=== PATIENT | female | born 1985 | race African-American/Black ===

== ENCOUNTER 2017-03-24 12:54 | Emergency (ER) | payer OTHER ==
[~2017-03-24] VITALS: Ht 149.9 cm; Wt 38.6 kg
[~2017-03-24 12:54] MED LIST: AMOX1TAB61 PO
[2017-03-24] MEDS ORDERED: IV NORMAL SALINE 1000ML BAG 1,000 ML IV SCH (13:08)
[2017-03-24] MEDS ORDERED: 0.9 % SODIUM CHLORIDE 10 ML DISP.SYRIN. IV PRN (13:15)
[2017-03-24] MEDS ORDERED: ONDANSETRON PF 4 MG/2 ML VIAL. IV ONE (13:15)
[2017-03-24] MEDS ORDERED: KETOROLAC TROMETHAMINE 30 MG/ML INJ. IV ONE (13:15)
[2017-03-24 13:21] LABS: BILIRUBIN,URINE NEGATIVE (NEG); GLUCOSE,URINE NEGATIVE (NEG); NITRITE,URINE NEGATIVE (NEG); PROTEIN,URINE NEGATIVE (NEG-TRACE); UROBILINOGEN,URINE 0.2 mg/dL (0.2 mg/dL)
--- NOTE | 2017-03-24 13:23 | PHYS DOC ---
Past Medical History Past Medical History: Anemia, Anxiety, Other Additional Past Medical Histor: herpes,BV Past Surgical History: No Surgical History Alcohol Use: None Drug Use: None Adult General Chief Complaint Chief Complaint: NAUSEA/VOMITING/DIARRHA HPI HPI A shows a pleasant 32-year-old female with history anxiety and night terrors presents with abdominal discomfort that began early this morning with nausea and vomiting 5 episodes. She's been in regular state of health that she woke this morning with crampy lower abdominal pain which is likely associated with her menstrual period. She began having nonbloody is nonbilious emesis 5. She also developed a little bit of a tension a frontal headache described as dull and throbbing. It is not worse of life and sudden onset without radiation to the neck. There is no numbness and tingling associate with this headache and no change in vision. She denies any photophobia or worsening with with exercise or exertion. Patient also been she's had no diarrhea no loose stools no UTI symptoms other than the crampy lower abdominal pain secondary to her LMP patient is otherwise no other complaints. She does somewhat dizzy at times standing from a sitting position. She is supposed to work at 3:30 this afternoon like to call in sick. Review of Systems Review of Systems Constitutional: Denies fever or chills [] Eyes: Denies change in visual acuity, redness, or eye pain [] HENT: Denies nasal congestion or sore throat [] Respiratory: Denies cough or shortness of breath [] Cardiovascular: No additional information not addressed in HPI [] GI: Patient does complain of lower crampy abdominal pain with nausea and vomiting 5 episodes nonbilious nonbloody. Patient has had no diarrhea, no constipation no mucus or blood in her stool. : Denies dysuria or hematuria [] Musculoskeletal: Denies back pain or joint pain [] Integument: Denies rash or skin lesions [] Neurologic: Denies no focal weakness or sensory changes patient does plan a mild frontal headache as described in the history of present illness as well as generalized dizziness described as a rotational motion with standing from a sitting position. Patient denies any problems speaking, changes in vision, tinnitus or weakness. Endocrine: Denies polyuria or polydipsia [] Current Medications Current Medications Current Medications Medications (Trade) Dose Ordered Sig/Lev Start Time Stop Time Status Last Admin Dose Admin Ketorolac Tromethamine (Toradol) 30 mg 1X ONCE 03/24/17 13:15 03/24/17 13:21 DC 03/24/17 13:30 30 MG Ondansetron HCl (Zofran) 4 mg 1X ONCE 03/24/17 13:15 03/24/17 13:21 DC 03/24/17 13:30 4 MG Sodium Chloride (Normal Saline Flush) 10 ml QSHIFT PRN 03/24/17 13:15 Allergies Allergies Allergies Coded Allergies Type Severity Reaction Last Updated Verified No Known Drug Allergies 11/06/14 No Physical Exam Physical Exam Is patient's vital signs been reviewed and they're all normal. Blood pressure is not measured or recorded yet by the this evaluation. Constitutional: Well developed, well nourished, no acute distress, non-toxic appearance. [] HENT: Normocephalic, atraumatic, bilateral external ears normal, oropharynx moist, no oral exudates, nose normal. [] Cardiovascular:Heart rate regular rhythm, no murmur [] Lungs & Thorax: Bilateral breath sounds clear to auscultation [] Abdomen: Increased bowel sounds with no active focal tenderness to palpation no Malin's nor McBurney's point tenderness palpation no guarding rebound or organomegaly no pulsatile mass. Skin: Warm, dry, no erythema, no rash. [] Back: No tenderness, no CVA tenderness. [] Extremities: No tenderness, no cyanosis, no clubbing, ROM intact, no edema. [] Neurologic: Alert and oriented X 3, normal motor function, normal sensory function, no focal deficits noted. [] Psychologic: She is low but anxious but normal judgment Current Patient Data Vital Signs Vital Signs Date Time Temp Pulse Resp B/P (MAP) Pulse Ox O2 Delivery O2 Flow Rate FiO2 03/24/17 13:00 98.2 86 18 124/68 (86) 98 Room Air 98.2 Lab Values Laboratory Tests Test 03/24/17 12:17 03/24/17 13:05 03/24/17 13:20 POC Urine HCG, Qualitative Hcg negative (Negative) Urine Collection Type Unknown Urine Color Yellow Urine Clarity Clear Urine pH 7.0 Urine Specific [place] 1.010 Urine Protein Negative mg/dL (NEG-TRACE) Urine Glucose (UA) Negative mg/dL (NEG) Urine Ketones (Stick) Negative mg/dL (NEG) Urine Blood Small (NEG) Urine Nitrite Negative (NEG) Urine Bilirubin Negative (NEG) Urine Urobilinogen Dipstick 0.2 mg/dL (0.2 mg/dL) Urine Leukocyte Esterase Trace (NEG) Urine RBC Occ /HPF (0-2) Urine WBC Occ /HPF (0-4) Urine Squamous Epithelial Cells Mod /LPF Urine Bacteria Few /HPF (0-FEW) Urine Mucus Mod /LPF White Blood Count 4.7 x10^3/uL (4.0-11.0) Red Blood Count 3.38 x10^6/uL (3.50-5.40) L Hemoglobin 11.1 g/dL (12.0-15.5) L Hematocrit 31.8 % (36.0-47.0) L Mean Corpuscular Volume 94 fL (79-100) Mean Corpuscular Hemoglobin 33 pg (25-35) Mean Corpuscular Hemoglobin Concent 35 g/dL (31-37) Red Cell Distribution Width 13.4 % (11.5-14.5) Platelet Count 417 x10^3/uL (140-400) H Neutrophils (%) (Auto) 59 % (31-73) Lymphocytes (%) (Auto) 33 % (24-48) Monocytes (%) (Auto) 6 % (0-9) Eosinophils (%) (Auto) 1 % (0-3) Basophils (%) (Auto) 1 % (0-3) Neutrophils # (Auto) 2.8 x10^3uL (1.8-7.7) Lymphocytes # (Auto) 1.5 x10^3/uL (1.0-4.8) Monocytes # (Auto) 0.3 x10^3/uL (0.0-1.1) Eosinophils # (Auto) 0.1 x10^3/uL (0.0-0.7) Basophils # (Auto) 0.0 x10^3/uL (0.0-0.2) Sodium Level 139 mmol/L (136-145) Potassium Level 3.7 mmol/L (3.5-5.1) Chloride Level 103 mmol/L (98-107) Carbon Dioxide Level 27 mmol/L (21-32) Anion Gap 9 (6-14) Blood Urea Nitrogen 9 mg/dL (7-20) Creatinine 0.7 mg/dL (0.6-1.0) Estimated GFR (Cockcroft-Gault) 118.1 BUN/Creatinine Ratio 13 (6-20) Glucose Level 97 mg/dL (70-99) Calcium Level 9.0 mg/dL (8.5-10.1) Total Bilirubin 0.3 mg/dL (0.2-1.0) Aspartate Amino Transferase (AST) 18 U/L (15-37) Alanine Aminotransferase (ALT) 13 U/L (14-59) L Alkaline Phosphatase 57 U/L (46-116) Total Protein 7.1 g/dL (6.4-8.2) Albumin 3.2 g/dL (3.4-5.0) L Albumin/Globulin Ratio 0.8 (1.0-1.7) L Lipase 171 U/L (73-393) Laboratory Tests 03/24/17 13:20 Laboratory Tests 03/24/17 13:20 EKG EKG EKG timed 1313 p.m. 03/24/2017 there is trace normal sinus rhythm 80 with a normal TX interval 124 number QRS at 70 normal QTC of 437 normal rhythm with no ST segment or T-wave changes consistent with acute cardiac ischemia. EKG read by Dr. Muir [] Radiology/Procedures Radiology/Procedures [] Course & Med Decision Making Course & Med Decision Making Pertinent Labs and Imaging studies reviewed. (See chart for details) I have reviewed patient nursing notes, vital signs and is treated physical findings my concern initially is to rule out ectopic and UTI. She will also fluids antiemetics given as we are awaiting her response to therapy. Her abdomen is soft with no specific or focal tenderness to palpation in the Malin' s or McBurney's point area. She has no guarding rebound or organomegaly. Patient tells me that their symptoms given during CC are improved. Patient is resting quietly in the bed as to go results. Unfortunately although she's not having any UTI symptoms her urine is contaminated with too many epithelial cells we will not treat this as a UTI. She states that she is not symptomatically. I will provide her antiemetics and something for her crampy abdominal pain is nonnarcotic in nature. I would encourage her to continue her hydration given the day off work and have her follow-up with her primary care doctor. Impression: Nausea and vomiting, near syncope Disposition: PCP follow-up in the next 24-48 hours asked to return for any increasing pain localized in the right lower quadrant return for any fevers greater 102.2 or she does develop any UTI symptoms or, Bleeding in her stool or vomit. Dragon Disclaimer Dragon Disclaimer This electronic medical record was generated, in whole or in part, using a voice recognition dictation system. Departure Departure Impression: Primary Impression: Nausea and vomiting Disposition: 01 HOME, SELF-CARE Condition: IMPROVED Referrals: UNKNOWN PCP NAME (PCP) Patient Instructions: Nausea and Vomiting Additional Instructions: Please return for any new or increasing symptoms or feel any question concerns. I would also suggest he return for any blood in her vomit or blood in her stool or if you have any questions or concerns. I would also asked to return for any localized abdominal pain the right lower quadrant with fever greater than 102.2 or any recurrent UTI symptoms. Please attempt to stay hydrated by drinking at least 8-10 glasses of clear fluid a day. Scripts Ondansetron (ZOFRAN ODT) 4 Mg Tab.rapdis 4 MG PO BID Y for NAUSEA/VOMITING for 7 Days, #14 TAB Prov: TONJA MUIR MD 03/24/17 Dicyclomine Hcl (BENTYL) 10 Mg Capsule 1 CAP PO TID, #30 CAP 3 Refills Prov: TONJA MUIR MD 03/24/17 TONJA MUIR MD Mar 24, 2017 13:23
[2017-03-24 13:37] LABS: BACTERIA,URINE FEW /HPF (0-FEW); RBC,URINE OCC /HPF (0-2); SQUAMOUS EPITHELIAL CELL,UR MOD /LPF; WBC,URINE OCC /HPF (0-4)
[2017-03-24 13:44] LABS: BASO % 1 % (0-3); EOS % 1 % (0-3); HEMATOCRIT 31.8 % (36.0-47.0); HEMOGLOBIN 11.1 g/dL (12.0-15.5); LYMPH # 1.5 x10^3/uL (1.0-4.8); LYMPH % 33 % (24-48); MEAN CORPUSCULAR HEMOGLOBIN 33 pg (25-35); MEAN CORPUSCULAR HGB CONC 35 g/dL (31-37); MEAN CORPUSCULAR VOLUME 94 fL (79-100); MONO % 6 % (0-9); NEUT % 59 % (31-73); PLATELET COUNT 417 x10^3/uL (140-400); RED BLOOD COUNT 3.38 x10^6/uL (3.50-5.40); RED CELL DISTRIBUTION WIDTH 13.4 % (11.5-14.5); WHITE BLOOD COUNT 4.7 x10^3/uL (4.0-11.0)
[2017-03-24 13:57] LABS: CREATININE 0.7 mg/dL (0.6-1.0); GFR 118.1; POTASSIUM 3.7 mmol/L (3.5-5.1)
[2017-03-24 14:03] LABS: ALBUMIN 3.2 g/dL (3.4-5.0); ALBUMIN/GLOBULIN RATIO 0.8 (1.0-1.7); TOTAL BILIRUBIN 0.3 mg/dL (0.2-1.0); TOTAL PROTEIN 7.1 g/dL (6.4-8.2)
[2017-03-24] MEDS ORDERED: DICY10CA53 PO (14:21)
[2017-03-24] MEDS ORDERED: ONDA4TAB10 PO (14:21)
[2017-03-24 14:29] VITALS: BP 103/71
--- NOTE | 2017-03-24 18:16 | EKG ---
[facility] [address] [place] [address] Test Date: 2017-03-24 Test Time: 13:13:46 Pat Name: SHELLY LOWRY Department: Room: Gender: F Podopediatrician: : 1985 Requested By: TONJA MUIR Order Number: [id number] Reading MD: Measurements Intervals [place] Rate: 80 P: 32 [place]: 124 QRS: 31 QRSD: 70 T: -3 QT: 376 QTc: 437 Interpretive Statements SINUS RHYTHM NON SPECIFIC T ABNORMALITY RI6.01 Unconfirmed report No previous ECG available for comparison
== END 2017-03-24 14:28 | disposition home or self-care (01) ==
LOC: ER 12:54
DX: R11.2 Nausea with vomiting, unspecified (principal); R10.30 Lower abdominal pain, unspecified; R51 Headache; R55 Syncope and collapse; F41.9 Anxiety disorder, unspecified
CPT/HCPCS: 36415; 80053; 81001; 81025; 83690; 85027; 93005; 96361; 96374; 96375; 99285; J1885; J2405; J7030

== ENCOUNTER 2017-09-15 03:45 | Emergency (ER) | payer OTHER ==
[2017-09-15 04:04] LABS: URINE HCG POC HCG NEGATIVE (Negative)
[2017-09-15 04:05] LABS: BILIRUBIN,URINE NEGATIVE (NEG); CLARITY,URINE CLEAR; COLOR,URINE YELLOW; GLUCOSE,URINE NEGATIVE (NEG); NITRITE,URINE NEGATIVE (NEG); PH,URINE 7.5; PROTEIN,URINE NEGATIVE (NEG-TRACE); UROBILINOGEN,URINE 0.2 mg/dL (0.2 mg/dL)
[2017-09-15] MEDS: ONDANSETRON ODT 4 MG TAB.RAPDIS. PO (04:10)
[2017-09-15 04:44] LABS: BACTERIA,URINE 0 /HPF (0-FEW); RBC,URINE OCC /HPF (0-2); SQUAMOUS EPITHELIAL CELL,UR FEW /LPF; WBC,URINE OCC /HPF (0-4)
== END 2017-09-15 05:05 | disposition home or self-care (01) ==
LOC: ER 03:45
DX: B34.9 Viral infection, unspecified (principal); R51 Headache; R11.2 Nausea with vomiting, unspecified
CPT/HCPCS: 70450; 81001; 81025; 99285-25; Q0162

== ENCOUNTER 2018-04-01 10:47 | Emergency (ER) | payer OTHER ==
[2018-04-01 11:09] LABS: URINE HCG POC HCG NEGATIVE (Negative)
[2018-04-01 11:57] LABS: ADD MAN DIFF? NO
[2018-04-01 12:01] LABS: BASO % 1 % (0-3); EOS % 1 % (0-3); HEMATOCRIT 31.7 % (36.0-47.0); HEMOGLOBIN 11.2 g/dL (12.0-15.5); LYMPH # 1.4 x10^3/uL (1.0-4.8); LYMPH % 31 % (24-48); MEAN CORPUSCULAR HEMOGLOBIN 32 pg (25-35); MEAN CORPUSCULAR HGB CONC 35 g/dL (31-37); MEAN CORPUSCULAR VOLUME 91 fL (79-100); MONO # 0.3 x10^3/uL (0.0-1.1); MONO % 6 % (0-9); NEUT # 2.9 x10^3uL (1.8-7.7); NEUT % 62 % (31-73); PLATELET COUNT 494 x10^3/uL (140-400); RED BLOOD COUNT 3.49 x10^6/uL (3.50-5.40); RED CELL DISTRIBUTION WIDTH 13.2 % (11.5-14.5); WHITE BLOOD COUNT 4.7 x10^3/uL (4.0-11.0)
[2018-04-01 12:03] LABS: BILIRUBIN,URINE NEGATIVE (NEG); CLARITY,URINE CLEAR; COLOR,URINE YELLOW; GLUCOSE,URINE NEGATIVE (NEG); NITRITE,URINE NEGATIVE (NEG); PROTEIN,URINE NEGATIVE (NEG-TRACE); UROBILINOGEN,URINE 0.2 mg/dL (0.2 mg/dL)
[2018-04-01 12:11] LABS: ANION GAP 10 (6-14); BLOOD UREA NITROGEN 6 mg/dL (7-20); BUN/CREATININE RATIO 8 (6-20); CALCIUM 8.9 mg/dL (8.5-10.1); CARBON DIOXIDE 25 mmol/L (21-32); CHLORIDE 103 mmol/L (98-107); CREATININE 0.8 mg/dL (0.6-1.0); GFR 100.6; GLUCOSE 96 mg/dL (70-99); POTASSIUM 3.3 mmol/L (3.5-5.1); SODIUM 138 mmol/L (136-145)
[2018-04-01] MEDS ORDERED: CONTRAST GIVEN. MC (12:15)
[2018-04-01 12:16] LABS: ALBUMIN 3.2 g/dL (3.4-5.0); ALBUMIN/GLOBULIN RATIO 0.8 (1.0-1.7); ALK PHOS 72 U/L (46-116); ALT (SGPT) 16 U/L (14-59); AST (SGOT) 19 U/L (15-37); LIPASE 137 U/L (73-393); MAGNESIUM 1.9 mg/dL (1.8-2.4); TOTAL BILIRUBIN 0.2 mg/dL (0.2-1.0); TOTAL PROTEIN 7.1 g/dL (6.4-8.2)
[2018-04-01 12:17] LABS: BACTERIA,URINE MODERATE /HPF (0-FEW); SQUAMOUS EPITHELIAL CELL,UR FEW /LPF; WBC,URINE 20-40 /HPF (0-4)
[2018-04-01] MEDS: KETOROLAC 30 MG/ML INJ. IV (12:19)
[2018-04-01] MEDS: FAMOTIDINE 20 MG/2 ML VIAL IVP (12:20)
[2018-04-01] MEDS: DICYCLOMINE 20 MG/2 ML AMPUL. IM (12:20)
[2018-04-01] MEDS: ONDANSETRON PF 4 MG/2 ML VIAL. IV (12:20)
[2018-04-01] MEDS: IOHEXOL 300 MG/ML 100ML VIAL. IV (13:16)
[2018-04-01] MEDS: IOHEXOL 240 MG/ML 50ML VIAL. PO (13:16)
[2018-04-01] MEDS: CEPHALEXIN 250 MG CAPSULE. PO (13:47)
== END 2018-04-01 13:55 | disposition home or self-care (01) ==
LOC: ER 10:47
DX: N30.00 Acute cystitis without hematuria (principal)
CPT/HCPCS: 36415; 74177; 80053; 81001; 81025; 83690; 83735; 85025; 87086; 96372; 96374; 96375; 99285-25; J0500; J1885; J2405; Q9966; Q9967; S0028

== ENCOUNTER → 2018-10-27 | Outpatient (CLI) | payer OTHER ==
[2018-04-01 12:24] VITALS: BP 112/79
[~2018-10-27] MED LIST changes: +CEPH-264 PO; +DICY10CA53 PO; +HYOS0.1265 SL; +ONDA4TAB10 PO; +ONDA4TAB7 PO
--- NOTE | 2018-10-27 17:01 | RAD ---
Right foot and ankle radiograph 10/27/2018 12:00 AM Left foot and ankle radiograph INDICATION: Feet and bilateral ankle pain, one week after injury COMPARISON: None available. TECHNIQUE: 3 views of the right foot, 3 views of the left foot, 3 views the right ankle and 3 views the left ankle are provided. FINDINGS: Right foot and ankle: There is no acute fracture or dislocation. 3mm osseous protuberance along the lateral aspect of the distal fibular metadiaphysis may reflect sequela prior trauma versus a small osteochondroma. Tibial plafond and talar dome are intact. Ankle mortise is congruent. Bone mineralization is within normal limits. Joint spaces are maintained. Regional soft tissues are within normal limits. There is no soft tissue gas or osseous erosion. There is pes planus. Left foot and ankle: There is no acute fracture or dislocation. Tibial plafond and talar dome are intact. Ankle mortise is congruent.. Bone mineralization is within normal limits. Joint spaces are maintained. Regional soft tissues are within normal limits. There is no soft tissue gas or osseous erosion. There is pes planus. IMPRESSION: No acute fracture or dislocation involving both feet and ankles. 3mm osseous protuberance along the lateral aspect of the distal fibular metadiaphysis may reflect sequela prior trauma versus a small osteochondroma. Electronically signed by: Maria Del Rosario Mendez MD (10/27/2018 4:58 PM) [id number]
--- NOTE | 2018-10-27 17:03 | RAD ---
Lumbar spine radiograph October 27, 2018 INDICATION: Lower back pain for one week after injury. History of sciatica. COMPARISON: None available TECHNIQUE: 5 views of the lumbosacral spine are provided. FINDINGS: Partial sacralization of the fifth lumbar segment is noted on the right. Alignment of the lumbar spine is normal. Vertebral body heights are maintained. No acute fracture is identified. There is no significant spondylolisthesis. No spondylolysis. Mild facet arthropathy is identified at the lumbosacral junction. Disc heights are maintained. There is a nonobstructive bowel gas pattern. Phleboliths are identified within the pelvis. Sacroiliac joints appear well maintained. IMPRESSION: 1. There is partial sacralization of the right L5 vertebral body. 2. No acute fracture or malalignment. Electronically signed by: Maria Del Rosario Mendez MD (10/27/2018 5:00 PM) [id number]
== END | disposition home or self-care (01) ==
LOC: RAD 14:29
PROVIDERS: ATTEND Physician Assistant Medical
DX: M21.42 Flat foot [pes planus] (acquired), left foot (principal); M21.41 Flat foot [pes planus] (acquired), right foot; M12.88 Other specific arthropathies, not elsewhere classified, other specified site
CPT/HCPCS: 72110; 73610; 73630

== ENCOUNTER 2020-05-07 09:57 | Emergency (ER) | payer MEDICAID, OTHER ==
[~2020-05-07] VITALS: Ht 149.9 cm; Wt 59.1 kg
[2020-05-07 11:10] LABS: CALCIUM 9.5 mg/dL (8.5-10.1); CREATININE 0.8 mg/dL (0.6-1.0); GFR 99.4; POTASSIUM 3.8 mmol/L (3.5-5.1)
[2020-05-07 11:15] LABS: BASO % 0 % (0-3); EOS % 0 % (0-3); HEMOGLOBIN 10.6 g/dL (12.0-15.5); LYMPH # 1.6 x10^3/uL (1.0-4.8); LYMPH % 18 % (24-48); MEAN CORPUSCULAR HEMOGLOBIN 28 pg (25-35); MEAN CORPUSCULAR HGB CONC 33 g/dL (31-37); MEAN CORPUSCULAR VOLUME 84 fL (79-100); MONO # 0.5 x10^3/uL (0.0-1.1); MONO % 6 % (0-9); NEUT # 6.8 x10^3/uL (1.8-7.7); NEUT % 75 % (31-73); RED BLOOD COUNT 3.81 x10^6/uL (3.50-5.40); RED CELL DISTRIBUTION WIDTH 15.3 % (11.5-14.5)
[2020-05-07 11:16] LABS: ALBUMIN 3.5 g/dL (3.4-5.0); ALBUMIN/GLOBULIN RATIO 0.7 (1.0-1.7); TOTAL BILIRUBIN 0.2 mg/dL (0.2-1.0); TOTAL PROTEIN 8.8 g/dL (6.4-8.2)
--- NOTE | 2020-05-07 11:25 | RAD ---
Examination: Supine and upright AP views of the abdomen HISTORY: History of left upper quadrant pain COMPARISON: None available FINDINGS: The bibasilar lungs are clear. No evidence of free air identified under the hemidiaphragm. The bowel gas pattern appears unremarkable. Feces and gas noted in the colon. IMPRESSION: Unremarkable bowel gas pattern. Electronically signed by: Sanchez Villar MD (05/07/2020 11:22 AM) [id number]
[2020-05-07 11:36] LABS: PLATELET COUNT 802 x10^3/uL (140-400)
--- NOTE | 2020-05-07 11:37 | PHYS DOC ---
Past Medical History Past Medical History: Anemia, Anxiety, Depression, Other Additional Past Medical Histor: herpes,BV; chronic sinus complaints Past Surgical History: Other Additional Past Surgical Histo: DENTAL SURGERY Smoking Status: Never Smoker Alcohol Use: Rarely Drug Use: None General Adult EDM: Chief Complaint: ABDOMINAL PAIN HPI: HPI: 35-year-old female past medical history significant for anemia, anxiety and depression, presents the ED with complaints of "stomach pain," located in epigastric and left upper quadrant, described as cramping in nature, intermittent that has been present for the past " 2 lawrence." Reports sxs exacerbarted after eating a spicy hot dog. States she has had irregular bowel movements and her primary doctor started seamus MiraLAX-but this makes her have diarrhea, last bowel movement was yesterday morning. Normal brown color. States she is also being prescribed PEG, sulcrafate and Pepcid. Has pending GI follow-up that her primary physician is scheduling. No PSH. LMP was 1 week ago. Is asking for medication for her stomach but does not want anything that causes cancer (zantac). Denies any daily alcohol/thc use. ROS: Denies associated fever, chills, cough, dyspnea, sore throat, chest pain, dyspnea, n/v/d/c, flank pain, dysuria, hematuria, melena, hematochezia, hematemesis, hemoptysis, leg swelling, rash, vaginal bleeding. Allergies: Allergies: Allergies Coded Allergies Type Severity Reaction Last Updated Verified No Known Drug Allergies 11/06/14 No Physical Exam: PE: Constitutional: Well developed, well nourished, no acute distress, non-toxic appearance. [] HENT: Normocephalic, atraumatic, Eyes: EOMI, conjunctiva normal, no discharge. [] Neck: Normal range of motion, no tenderness, supple, no stridor. [] Cardiovascular:Heart rate regular rhythm, no murmur [] Lungs & Thorax: Bilateral breath sounds clear to auscultation [] Abdomen: Bowel sounds normal, soft, no tenderness, no masses, no pulsatile masses. []-very benign abdominal exam Skin: Warm, dry, no erythema, no rash. [] Back: No tenderness, no CVA tenderness. [] Extremities: No tenderness, no cyanosis, no clubbing, ROM intact, no edema. [] Neurologic: Alert and oriented X 3, normal motor function, normal sensory function, no focal deficits noted. [] Psychologic: Affect normal, judgement normal, mood normal. [], slightly anxious Current Patient Data: Labs: Laboratory Tests Test 05/07/20 10:21 05/07/20 10:35 POC Urine HCG, Qualitative Hcg negative (Negative) White Blood Count 9.0 x10^3/uL (4.0-11.0) Red Blood Count 3.81 x10^6/uL (3.50-5.40) Hemoglobin 10.6 g/dL (12.0-15.5) L Hematocrit 32.0 % (36.0-47.0) L Mean Corpuscular Volume 84 fL (79-100) Mean Corpuscular Hemoglobin 28 pg (25-35) Mean Corpuscular Hemoglobin Concent 33 g/dL (31-37) Red Cell Distribution Width 15.3 % (11.5-14.5) H Platelet Count 802 x10^3/uL (140-400) H Neutrophils (%) (Auto) 75 % (31-73) H Lymphocytes (%) (Auto) 18 % (24-48) L Monocytes (%) (Auto) 6 % (0-9) Eosinophils (%) (Auto) 0 % (0-3) Basophils (%) (Auto) 0 % (0-3) Neutrophils # (Auto) 6.8 x10^3/uL (1.8-7.7) Lymphocytes # (Auto) 1.6 x10^3/uL (1.0-4.8) Monocytes # (Auto) 0.5 x10^3/uL (0.0-1.1) Eosinophils # (Auto) 0.0 x10^3/uL (0.0-0.7) Basophils # (Auto) 0.0 x10^3/uL (0.0-0.2) Sodium Level 135 mmol/L (136-145) L Potassium Level 3.8 mmol/L (3.5-5.1) Chloride Level 100 mmol/L (98-107) Carbon Dioxide Level 28 mmol/L (21-32) Anion Gap 7 (6-14) Blood Urea Nitrogen 9 mg/dL (7-20) Creatinine 0.8 mg/dL (0.6-1.0) Estimated GFR (Cockcroft-Gault) 99.4 BUN/Creatinine Ratio 11 (6-20) Glucose Level 97 mg/dL (70-99) Calcium Level 9.5 mg/dL (8.5-10.1) Magnesium Level 2.0 mg/dL (1.8-2.4) Total Bilirubin 0.2 mg/dL (0.2-1.0) Aspartate Amino Transferase (AST) 16 U/L (15-37) Alanine Aminotransferase (ALT) 18 U/L (14-59) Alkaline Phosphatase 110 U/L (46-116) Total Protein 8.8 g/dL (6.4-8.2) H Albumin 3.5 g/dL (3.4-5.0) Albumin/Globulin Ratio 0.7 (1.0-1.7) L Laboratory Tests 05/07/20 10:35 Laboratory Tests 05/07/20 10:35 Vital Signs: Vital Signs Date Time Temp Pulse Resp B/P (MAP) Pulse Ox O2 Delivery O2 Flow Rate FiO2 05/07/20 10:07 98.9 90 18 108/65 (79) 98 Room Air 98.9 EKG: EKG: [] Radiology/Procedures: Radiology/Procedures: []IMAGING REPORT Signed PATIENT: SHELLY LOWRY ACCOUNT: [id number] : 1985 LOCATION: ER AGE: 35 SEX: F EXAM STATUS: REG ER ORD. PHYSICIAN: BRENDAN SANFORD DO REASON: luq pain PROCEDURE: ABDOMEN SUPINE & UPRIGHT Examination: Supine and upright AP views of the abdomen HISTORY: History of left upper quadrant pain COMPARISON: None available FINDINGS: The bibasilar lungs are clear. No evidence of free air identified under the hemidiaphragm. The bowel gas pattern appears unremarkable. Feces and gas noted in the colon. IMPRESSION: Unremarkable bowel gas pattern. Electronically signed by: Sanchez Villar MD (05/07/2020 11:22 AM) [id number] DICTATED and SIGNED BY: SANCHEZ VILLAR MD DATE: 05/07/20 1122 Course & Med Decision Making: Course & Med Decision Making Pertinent Labs and Imaging studies reviewed. (See chart for details) Concern for mild abdominal pain - broad differential in a well appearing, non distress pt. Likely IBS vs constipation vs gerd. We did discuss further ct imagi ng-pt declined and wishes to pursue outpatient management with GI. Strict ED return precautions were given for severe abdominal pain or back pain. Encouraged urgent outpatient follow-up with PMD and GI (needs upper GI). Life- threatening processes were considered but are low suspicion at this time, given history and physical exam. Pt was educated on all prescription medications and adverse effects. All patient's questions were answered and pt was stable at time of discharge. Differential includes aortic dissection, aortic aneurysm, acute coronary syndrome, surgical abdomen (appendicitis, cholecystitis, ischemic bowel, strangulated hernia, etc), bowel obstruction or volvulus, bladder outlet obstruction, gastrointestinal bleeding, inflammatory bowel disease, peptic ulcer disease, sepsis, diverticular disease, ureterolithiasis, nephrolithiasis, ovarian torsion, ectopic I spoken with the patient and her caregivers. I explained the patient's condition, diagnoses and treatment plan based on the information available to me at this time. I have answered the patient and her caregiver's questions and addressed any concerns. The patient and her caregivers have a good unders tanding of patient's diagnosis, condition and treatment plan as can be expected at this point. Vital signs have been stable. Patient's condition is stable and appropriate for discharge from the emergency department. Patient will pursue further outpatient evaluation with primary care physician or other designated or consulting physician as outlined in the discharge instructions. The patient and/or caregivers are agreeable to this plan of care and follow-up instructions have been explained in detail. The patient and/or caregivers have received these instructions in written form and have expressed an understanding of the discharge instructions. The patient and/or caregivers are aware that any significant change of condition or worsening of symptoms should prompt immediate return to this or the closest emergency department or call to 911. Gurvinder Disclaimer: Gurvinder Disclaimer: This electronic medical record was generated, in whole or in part, using a voice recognition dictation system. Departure Departure Impression: Primary Impression: Abdominal pain Additional Impression: Anemia Disposition: 01 HOME, SELF-CARE Condition: STABLE Referrals: GRETEL FELIX PA-C (PCP) Additional Instructions: Tio Pierre MD Gastroenterology [facility] Address: [address] [place] [address] Justicifation of Admission Dx: Justifications for Admission: Justification of Admission Dx: N/A BRENDAN SANFORD DO May 07, 2020 11:37
[2020-05-07] MEDS ORDERED: LIDO:MAALOX 1:1 20 ML SINGLE DOSE. SWSW ONE (13:15)
[2020-05-07 13:23] VITALS: BP 107/56
== END 2020-05-07 14:00 | disposition home or self-care (01) ==
LOC: ER 09:57
DX: R10.13 Epigastric pain (principal); D64.9 Anemia, unspecified; R10.11 Right upper quadrant pain; F41.9 Anxiety disorder, unspecified; F32.9 Major depressive disorder, single episode, unspecified
CPT/HCPCS: 36415; 74021; 80053; 81025; 83690; 83735; 85025; 99285-25

== ENCOUNTER → 2020-06-09 | Outpatient (CLI) | payer MEDICAID ==
[~2020-06-09] VITALS: Ht 149.9 cm; Wt 56.7 kg
[~2020-06-09] MED LIST changes: +SINCALIDE 1.13 MCG in IV NORMAL SALINE 50ML 30 ML IV ONE
--- NOTE | 2020-06-09 08:21 | RAD ---
EXAM: Abdomen sonogram. HISTORY: Epigastric pain. TECHNIQUE: Sonographic imaging of the abdomen was performed. COMPARISON: CT dated 04/01/2018. FINDINGS: The liver is normal in size. No focal hepatic lesion is seen. There is a 3.7 mm nonmobile echogenic focus along the gallbladder wall. The imaging appearance favors a polyp. The common bile duct is normal in caliber. The right kidney measures 7.9 cm [id number]. The inferior aspect of the right kidney is obscured due to bowel gas. The pancreas is unremarkable. The inferior vena cava is patent. IMPRESSION: 1. Suspected 3.7 mm gallbladder polyp. 2. Decreased right renal size. This is likely underestimated due to bowel gas which obscures the inferior aspect of the right kidney. 3. No acute finding. Electronically signed by: Pallavi Figueroa MD (06/09/2020 8:18 AM) [id number]
--- NOTE | 2020-06-09 12:18 | RAD ---
EXAM: HEPATOBILIARY SCINTIGRAPHY WITH GALLBLADDER EJECTION FRACTION CALCULATION. HISTORY: Abdominal pain/nausea. TECHNIQUE: 5.5 mCi technetium-99m Choletec were administered intravenously and scintigraphic images of the abdomen obtained. After filling of the gallbladder, 1.13 mcg of sincalide were infused and the gallbladder ejection fraction calculated. FINDINGS: There is prompt hepatic clearance of tracer from the blood pool. There is homogeneous distribution throughout the liver. There is normal filling of the gallbladder and clearance into the biliary tree and small bowel. The gallbladder ejection fraction is 81% (normal >35%). IMPRESSION: 1. Normal gallbladder ejection fraction. Electronically signed by: Marlene Green MD (06/09/2020 12:15 PM) [id number]
== END | disposition home or self-care (01) ==
LOC: US 06:58
PROVIDERS: ATTEND Internal Medicine Gastroenterology
DX: R11.0 Nausea (principal); R10.13 Epigastric pain
CPT/HCPCS: 76705; 78227; A9537; J2805

== ENCOUNTER → 2020-08-08 | Outpatient (CLI) | payer MEDICAID ==
[~2020-08-08] MED LIST changes: +ASCO500C9 PO; +BISO5TAB8 PO; +CETI10TA16 PO; +FLUT9.9S NS; +OMEP40CA45 PO; +OXYC1TAB15 PO; -SINCALIDE 1.13 MCG in IV NORMAL SALINE 50ML 30 ML IV ONE; +VENL75TA PO
== END ==
LOC: LAB 13:29
PROVIDERS: ATTEND Surgery
DX: Z01.812 Encounter for preprocedural laboratory examination (principal); K82.4 Cholesterolosis of gallbladder; Z20.828 Contact with and (suspected) exposure to other viral communicable diseases
CPT/HCPCS: U0003

== ENCOUNTER 2020-08-11 06:34 | Day surgery (SDC) | payer MEDICAID ==
[~2020-08-11] VITALS: Ht 149.9 cm; Wt 53.5 kg
[~2020-08-11 06:34] MED LIST changes: +ACETAMINOPHEN 500 MG TABLET PO PRN; +BUPIVACAINE-EPI 0.25%-1:200000 MPF 30 ML VIAL. INJ ONE; +INDOCYANINE GREEN 2.5 MG in TOTAL VOLUME SYRINGE 1 ML IVP ONE; -OXYC1TAB15 PO; +ceFAZolin SODIUM IV Push 1 GM VIAL. IVP PRN
[2020-08-11] MEDS ORDERED: MORPHINE SULFATE 2 MG/ML VIAL. IVP PRN (07:00)
[2020-08-11] MEDS ORDERED: PROCHLORPERAZINE 10 MG/2 ML VIAL. IVP PRN (07:00)
[2020-08-11] MEDS ORDERED: fentaNYL PF VIAL 100 MCG/2 ML VIAL IVP PRN ×2 (07:00)
[2020-08-11] MEDS ORDERED: HYDROmorphone 2 MG/ML VIAL IVP PRN (07:00)
[2020-08-11] MEDS ORDERED: LIDOCAINE 1% PF 2 ML VIAL. ID PRN (07:00)
[2020-08-11] MEDS ORDERED: ONDANSETRON PF 4 MG/2 ML VIAL. IVP PRN (07:00)
[2020-08-11] MEDS: IV RINGERS,LACTATED 1000ML 1,000 ML IV SCH ×2 (07:05→09:58)
[2020-08-11] MEDS ORDERED: MIDAZOLAM HCL/PF 2 MG/2 ML VIAL. ONE (07:38)
[2020-08-11] MEDS ORDERED: fentaNYL PF VIAL 100 MCG/2 ML VIAL ONE ×2 (07:38→08:06)
[2020-08-11] MEDS ORDERED: ROCURONIUM 50 MG/5 ML VIAL. ONE (07:39)
--- NOTE | 2020-08-11 07:43 | PDOC1 ---
History and Physical Date of Admission Date of Admission DATE: 08/11/20 TIME: 07:40 Identification/Chief Complaint Chief Complaint Postprandial pain Source Source: Patient History of Present Illness History of Present Illness 35-year-old female who has complaints of pain after eating mostly across her upper abdomen and to the right side. Ultrasound of the gallbladder did not show stones but did show polyps within the gallbladder HIDA scan was normal Past Medical History Cardiovascular: No pertinent hx Pulmonary: No pertinent hx GI: No pertinent hx Heme/Onc: Anemia NOS Hepatobiliary: No pertinent hx Psych: Anxiety, Depression Rheumatologic: No pertinent hx Infectious disease: No pertinent hx ENT: No pertinent hx Renal/: No pertinent hx Endocrine: No pertinent hx Dermatology: No pertinent hx Past Surgical History Past Surgical History: No pertinent history Family History Family History: No Significant Social History Smoke: No ALCOHOL: none Current Medications Current Medications Current Medications Ondansetron HCl (Zofran) 4 mg PRN Q6HRS PRN IVP NAUSEA/VOMITING; Start 08/11/20 at 07:00; Stop 08/12/20 at 06:59 Fentanyl Citrate (Fentanyl 2ml Vial) 25 mcg PRN Q5MIN PRN IVP MILD PAIN 1-3; Start 08/11/20 at 07:00; Stop 08/12/20 at 06:59 Fentanyl Citrate (Fentanyl 2ml Vial) 50 mcg PRN Q5MIN PRN IVP MODERATE TO SEVERE PAIN; Start 08/11/20 at 07:00; Stop 08/12/20 at 06:59 Morphine Sulfate (Morphine Sulfate) 1 mg PRN Q10MIN PRN IVP SEVERE PAIN 7-10; Start 08/11/20 at 07:00; Stop 08/12/20 at 06:59 Ringer's Solution 1,000 ml @ 30 mls/hr Q24H IV Last administered on 08/11/20at 07:05; Start 08/11/20 at 07:00; Stop 08/11/20 at 18:59 Lidocaine HCl (Xylocaine-Mpf 1% 2ml Vial) 2 ml PRN 1X PRN ID IV START; Start 08/11/20 at 07:00; Stop 08/12/20 at 06:59 Hydromorphone HCl (Dilaudid) 0.5 mg PRN Q10MIN PRN IVP SEV PAIN, Second choice; Start 08/11/20 at 07:00; Stop 08/12/20 at 06:59 Prochlorperazine Edisylate (Compazine) 5 mg PACU PRN PRN IVP NAUSEA, MRX1; Start 08/11/20 at 07:00; Stop 08/12/20 at 06:59 Indocyanine Green 2.5 mg/ Miscellaneous 1 ml @ 60 mls/hr 1X ONCE IVP Last administered on 08/11/20at 07:11; Start 08/11/20 at 06:30; Stop 08/11/20 at 06:31; Status DC Bupivacaine HCl/ Epinephrine Bitart (Sensorcaine-Epi 0.25%-[id number]:081813 Mpf) 30 ml 1X ONCE INJ ; Start 08/11/20 at 06:00; Stop 08/11/20 at 06:01; Status DC Acetaminophen (Tylenol) 1,000 mg OC PROC PRN PO PRE-OP Last administered on 08/11/20at 07:07; Start 08/11/20 at 06:00; Stop 08/11/20 at 18:00 Cefazolin Sodium (Ancef) 1 gm 1X PREOP PRN IVP PRIOR TO PROCEDURE; Start 08/11/20 at 06:00; Stop 08/11/20 at 18:00 Midazolam HCl (Versed) 2 mg STK-MED ONCE .ROUTE ; Start 08/11/20 at 07:38; Stop 08/11/20 at 07:38; Status DC Fentanyl Citrate (Fentanyl 2ml Vial) 100 mcg STK-MED ONCE .ROUTE ; Start 08/11/20 at 07:38; Stop 08/11/20 at 07:39; Status DC Rocuronium [place] (Zemuron) 50 mg STK-MED ONCE .ROUTE ; Start 08/11/20 at 07:39; Stop 08/11/20 at 07:39; Status DC Active Scripts Active Zofran (Ondansetron Hcl) 4 Mg Tablet 1 Tab PO Q8HRS PRN Reported Cetirizine Hcl 10 Mg Tablet 10 Mg PO DAILY Omeprazole 40 Mg Capsule.dr 40 Mg PO DAILY Venlafaxine Hcl 75 Mg Tablet 150 Mg PO DAILY16 Flonase Allergy Relief (Fluticasone Propionate) 9.9 Ml Blum.susp 2 Sprays NS PRN DAILY PRN Vitamin C (Ascorbic Acid) 500 Mg Capsule 500 Mg PO DAILY Allergies Allergies: Coded Allergies: pineapple (Verified Allergy, Intermediate, Swelling, 08/11/20) lips swelled famotidine (Verified Adverse Reaction, Intermediate, Nausea and Vomiting, 08/11/20) ROS Gastrointestinal: Yes Abdominal Pain Physical Exam General: Alert, Oriented X3, Cooperative, No acute distress HEENT: Atraumatic, EOMI Lungs: Clear to auscultation, Normal air movement Heart: RRR, no murmurs Abdomen: Normal bowel sounds, Soft, No tenderness Rectal Exam: not examined Extremities: No edema Skin: No significant lesion Neuro: Normal speech Psych/Mental Status: Mental status NL Vitals Vitals Vital Signs Date Time Temp Pulse Resp B/P (MAP) Pulse Ox O2 Delivery O2 Flow Rate FiO2 08/11/20 07:05 97.3 94 126/64 98 97.3 08/11/20 07:02 20 Labs Labs Laboratory Tests Test 08/11/20 06:47 Bedside Urine HCG, Qualitative Hcg negative (Negative) Laboratory Tests Test 08/11/20 06:47 Bedside Urine HCG, Qualitative Hcg negative (Negative) VTE Prophylaxis Ordered VTE Prophylaxis Devices: Yes VTE Pharmacological Prophylaxi: Contraindicated Assessment/Plan Assessment/Plan Gallbladder polyps plan robotic assisted laparoscopic cholecystectomy Justifications for Admission Other Justification LUAN HODGE MD Aug 11, 2020 07:43
[2020-08-11] MEDS ORDERED: DEXAMETHASONE SOD PHOS 20 MG/5 ML VIAL. ONE (08:18)
[2020-08-11] MEDS ORDERED: KETOROLAC 30 MG/ML VIAL. ONE (08:18)
[2020-08-11] MEDS ORDERED: NEOSTIGMINE METHYLSULFATE 5 MG/5 ML SYRINGE. ONE ×2 (08:18→08:58)
[2020-08-11] MEDS ORDERED: PROPOFOL 10 MG/ML (20ML) VIAL. IV ONE (08:18)
[2020-08-11] MEDS ORDERED: ONDANSETRON PF 4 MG/2 ML VIAL. ONE (08:18)
[2020-08-11] MEDS ORDERED: LIDOCAINE 2% PF 5 ML VIAL. ONE (08:18)
[2020-08-11] MEDS ORDERED: GLYCOPYRROLATE 1 MG/5 ML VIAL. ONE (08:18)
[2020-08-11] MEDS ORDERED: SEVOFLURANE 31 TO 60 MINUTES. IH ONE (08:45)
--- NOTE | 2020-08-11 08:48 | PDOC4 ---
Operative Note Operative Note Date: August 11, 2020 at 845 Preoperative diagnosis: Gallbladder polyp Postoperative diagnosis: Same Procedure: Robotic assisted laparoscopic cholecystectomy Surgeon: Srinivasan Specimen: Gallbladder Dictation: Patient is a 35-year-old female has had postprandial nausea and pain ultrasound and HIDA scan did not show gallstones or biliary dyskinesia but did show gallbladder polyps. The procedure of robotic assisted laparoscopic cholecystectomy was explained to the patient detail risk benefits were also discussed including bleeding infection injury to intra-abdominal contents possibly necessitating further or open operations alternatives to this procedure also discussed with the patient who seemed to understand and gave both verbal and written consent to have the procedure performed. Patient was taken to the operating room placed in supine position general anesthesia was initiated once patient was sleeping intubated is placed in reverse Trendelenburg and tilted to the left a area just below the umbilicus inject quarter percent Marcaine with epinephrine incision was made 11 blade scalpel and a varies needle was placed within the abdomen creating pneumoperitoneum once this complete 12 mm port was placed in a da Parminder 30 degree camera was placed within the abdomen which was inspected no other red maladies were noted. A 8 mm ventral port was placed in the left midabdomen and an 8 mm da Parminder port was placed in the right midabdomen and a alligator grasper was placed through the right upper quadrant grasping the dome of the gallbladder. The da Parminder robot was brought and docked all port sites surgeon went to the robotic console using a grasper and hook cautery the adherent tissues in the triangle were taken down exposing the cystic duct and cystic artery both were doubly clipped and transected the gallbladder was taken off the liver with hook electrocautery. Surgeon returned to the operative field the da Parminder robot was undocked from all port sites a Endo Catch bag was placed through the 12 mm port site and the gallbladder was removed from this through the Endo Catch bag. The pneumoperitoneum was reduced all ports were removed the fascial defect at the umbilicus closed with a [id number] 0 Vicryl suture and the skin was reapproximated all port sites for subcuticular Monocryl Mastisol Steri-Strips and island dressings were applied. Patient was awakened and extubated in the operating room taken to recovery in stable condition all sponge instrument needle counts listed as correct estimated blood loss 5 mL LUAN HODGE MD Aug 11, 2020 08:48
--- NOTE | 2020-08-11 08:50 | DISCH ---
DISCHARGE INSTRUCTIONS Condition on Discharge Condition on Discharge: Stable Activity After Discharge Activity Instructions for Disc: Avoid exertion Other activity instructions: No lifting more than 20 pounds for 2 weeks Diet after Discharge Diet after Discharge: Low Fat Wound Incision Care Other wound/incision instructi: May shower in 24 hours Contacting the after DC Call your doctor for: If your condition worsens Follow-Up Follow up with: Dr. Hodge in 2 weeks LUAN HODGE MD Aug 11, 2020 08:50
[2020-08-11] MEDS ORDERED: OXYC1TAB15 PO (09:14)
[2020-08-11] MEDS ORDERED: oxyCODONE/APAP 5/325 1 TAB TABLET PO ONE (09:30)
[2020-08-11 11:31] VITALS: BP 122/79
== END 2020-08-11 12:15 | disposition home or self-care (01) ==
LOC: SURG 06:34
PROVIDERS: ATTEND Surgery
DX: K82.4 Cholesterolosis of gallbladder (principal); K21.9 Gastro-esophageal reflux disease without esophagitis; F41.9 Anxiety disorder, unspecified; F32.9 Major depressive disorder, single episode, unspecified; Z72.89 Other problems related to lifestyle; Z79.899 Other long term (current) drug therapy; Z98.890 Other specified postprocedural states; Z88.8 Allergy status to other drugs, medicaments and biological substances
CPT/HCPCS: 47562; 81025; J0690; J1100; J1885; J2250; J2405; J2704; J2710; J3010; J3490; S2900